=== PATIENT | male | born 1995 | race Caucasian/White ===

== ENCOUNTER 2024-10-29 08:26 | Outpatient (CLI) | payer BC | END 2024-10-29 08:27 | disposition home or self-care (01) | LOC: MRI 08:26 | PROVIDERS: ATTEND Orthopaedic Surgery | DX: M51.14 Intervertebral disc disorders with radiculopathy, thoracic region (principal); M54.2 Cervicalgia; M47.24 Other spondylosis with radiculopathy, thoracic region; M43.8X4 Other specified deforming dorsopathies, thoracic region; M47.22 Other spondylosis with radiculopathy, cervical region; M47.813 Spondylosis without myelopathy or radiculopathy, cervicothoracic region; M48.02 Spinal stenosis, cervical region | CPT/HCPCS: 72141; 72146 ==